=== PATIENT | female | born 1975 | race Caucasian/White ===

== ENCOUNTER 2017-02-18 12:41 | Emergency (ER) | payer SELFPAY ==
[~2017-02-18] VITALS: Ht 167.6 cm; Wt 59.0 kg
[2017-02-18] MEDS ORDERED: GEODON20 MG PO (13:39)
[2017-02-18] MEDS ORDERED: BUPROPION HCL150 MG PO (13:39)
[2017-02-18] MEDS ORDERED: PROPRANOLOL HCL40 MG PO (13:39)
[2017-02-18] MEDS ORDERED: HYDROXYZINE HCL25 MG PO (13:39)
[2017-02-18] MEDS ORDERED: CITALOPRAM HBR20 MG PO (13:39)
[2017-02-18] MEDS ORDERED: LITHIUM CARBON300 M2 PO (13:39)
[2017-02-18 14:42] LABS: BASOPHILS # (AUTO) 0.1 (0.0-0.1); EOSINOPHILS # (AUTO) 0.2 (0.0-0.4); EOSINOPHILS % 1.9 % (0.0-6.0); HEMATOCRIT 46.6 % (34.2-44.1); HEMOGLOBIN 16.1 g/dL (12.0-16.0); LYMPHOCYTES # (AUTO) 2.4 (1.0-3.2); LYMPHOCYTES % 20.9 % (18.0-39.1); MEAN CORPUSCULAR HEMOGLOBIN 30.6 pg (28-32); MEAN CORPUSCULAR HGB CONC 34.5 g/dL (31-35); MEAN CORPUSCULAR VOLUME 88.4 fL (81-99); MONOCYTES # (AUTO) 0.9 (0.2-0.8); MONOCYTES % 7.7 % (4.4-11.3); NEUTROPHILS # (AUTO) 7.8 (2.1-6.9); NEUTROPHILS % 68.2 % (38.7-80.0); PLATELET COUNT 442 x10e3/uL (140-360); RED BLOOD COUNT 5.27 x10e6/uL (3.6-5.1); RED CELL DISTRIBUTION WIDTH 13.1 % (11.7-14.4)
[2017-02-18 14:51] LABS: ALANINE AMINOTRANSFERASE 11 IU/L (0-55); ALBUMIN 4.2 g/dL (3.5-5.0); ALBUMIN/GLOBULIN RATIO 0.9 (0.8-2.0); ALKALINE PHOSPHATASE 105 IU/L (40-150); ANION GAP 15.3 mmol/L (8-16); BLOOD UREA NITROGEN 10 mg/dL (7-26); BUN/CREATININE RATIO 13 (6-25); CALCIUM 9.5 mg/dL (8.4-10.2); CARBON DIOXIDE 22 mmol/L (22-29); CHLORIDE 107 mmol/L (98-107); CREATINE KINASE 49 IU/L (29-168); CREATININE, SERUM 0.75 mg/dL (0.57-1.11); EST GLOMERULAR FILTRATION RATE > 60 ML/MIN (60-); GLUCOSE 98 mg/dL (74-118); LIPASE 9 U/L (8-78); POTASSIUM 3.3 mmol/L (3.5-5.1); SODIUM 141 mmol/L (136-145)
[2017-02-18 14:57] LABS: TROPONIN I 0.001 ng/mL (0-0.300)
--- NOTE | 2017-02-18 15:07 | Diagnostic Imaging Report ---
PROCEDURE:X-RAY CHEST, ONE VIEW COMPARISON:None. INDICATIONS:FEELS LIKE THROAT IS CLOSING AND STOMACH HURTING FINDINGS: Frontal image of obtained at 1442 hrs. The heart is normal in size. Aorta is ectatic. No hilar lymphadenopathy. The trachea and possible bronchi are normal in morphology. The pulmonary markings are normal. There is no evidence of mass or infiltrate. Costophrenic angles are sharp. No pneumothorax. Osseous structures are unremarkable for age. CONCLUSION: No acute cardiopulmonary abnormality. Dictated by: Amy Brian M.D. on 02/18/2017 at 15:15 Electronically approved by: Amy Brian M.D. on 02/18/2017 at 15:15
[2017-02-18 15:26] LABS: ACETAMINOPHEN < 3 ug/mL (10-30); SALICYLATE < 5.0 mg/dL (0-30)
[2017-02-18 16:02] LABS: AMPHETAMINES SCREEN,URINE NEGATIVE (NEGATIVE); BENZODIAZEPINES SCREEN,URINE POSITIVE (NEGATIVE); CANNABINOIDS SCREEN,URINE NEGATIVE (NEGATIVE); PHENCYCLIDINE SCREEN,URINE NEGATIVE (NEGATIVE)
[2017-02-18 16:08] LABS: BILIRUBIN,URINE NEGATIVE (NEGATIVE); KETONES,URINE NEGATIVE (NEGATIVE); LEUKOCYTE ESTERASE ,URINE 1+ (NEGATIVE); NITRITE,URINE NEGATIVE (NEGATIVE); URINE UROBILINOGEN 0.2 mg/dL (0.2 - 1)
[2017-02-18 16:17] LABS: CLARITY,URINE HAZY (CLEAR); COLOR,URINE YELLOW (YELLOW); PROTEIN,URINE DIPSTICK 1+ (NEGATIVE)
[2017-02-18 16:31] LABS: EPITHELIAL CELLS,URINE MANY /LPF
[2017-02-18 16:32] LABS: AMORPHOUS SEDIMENT,URINE FEW (FEW); BACTERIA,URINE FEW /HPF; WBC,URINE (MAN) 21-50 /HPF (0-5)
[2017-02-19] MEDS ORDERED: NITROFURANTOIN MACROCRYSTALS 100 MG CAP PO ONE (03:45)
[2017-02-19] MEDS ORDERED: INFLUENZA VIRUS VAC SPLIT INJ 0.5 ML SYR IM ONE (03:45)
== END 2017-02-19 05:16 ==
LOC: ER 12:41
DX: R45.851 Suicidal ideations (principal); F14.150 Cocaine abuse with cocaine-induced psychotic disorder with delusions; N30.01 Acute cystitis with hematuria
CPT/HCPCS: 36415; 71010; 80053; 80178; 80307; 80320; 80329; 81001; 82550; 82553; 83690; 84484; 84702; 85025; 85730; 93005; 99284